=== PATIENT | male | born 1945 | race Caucasian/White ===

== ENCOUNTER 2020-01-26 09:32 | Emergency (ER) | payer MEDICARE ==
[~2020-01-26] VITALS: Ht 172.7 cm; Wt 82.3 kg
[2020-01-26 09:37] VITALS: Ht 172.7 cm; Wt 82.3 kg
[2020-01-26] MEDS ORDERED: ZYPREXA2.5 MG (09:38)
[2020-01-26 11:51] LABS: BACTERIA FEW /hpf (NEGATIVE); BILIRUBIN NEGATIVE (NEGATIVE); EPITHELIAL CELLS 0-5 /hpf (0-5); GLUCOSE NEGATIVE (NEGATIVE); KETONE NEGATIVE (NEGATIVE); NITRITE NEGATIVE (NEGATIVE); RED CELLS - URINE OCC /hpf (0-5); SPECIFIC GRAVITY 1.015 (1.005-1.020); UROBILINOGEN NORMAL (NORMAL)
[2020-01-26 11:55] LABS: BASOPHILS 0.2 % (0-2); EOSINOPHILS 4.6 % (0-7); HEMATOCRIT 37.7 % (42.0-54.0); HEMOGLOBIN 13.1 g/dL (13.5-17.5); IMMATURE GRANULOCYTES 0.2 % (0-5); LYMPHOCYTES 23.2 % (15-50); MCHC 34.7 g/dL (31.0-37.0); MCV 97.9 fL (80.0-100.0); MEAN PLATELET VOLUME 9.8 fL (7.4-10.4); MONOCYTES 8.5 % (2-11); NEUTROPHILS 63.3 % (40-80); PLATELET COUNT 131 10x3/uL (130-400); RBC 3.85 10x6/uL (4.20-6.10); RDW 13.4 % (11.5-14.5); WBC 4.8 10x3/uL (4.8-10.8)
[2020-01-26 12:01] LABS: ANION GAP 13.3 mmol/L (8-16); CALCIUM 8.3 mg/dL (8.5-10.1); CARBON DIOXIDE 21.6 mmol/L (21.0-32.0); CREATININE - SERUM 1.6 mg/dL (0.6-1.3); POTASSIUM - SERUM 3.9 mmol/L (3.5-5.1)
[2020-01-26 12:07] LABS: ALBUMIN 3.3 g/dL (3.4-5.0); BILIRUBIN - TOTAL 0.28 mg/dL (0.2-1.3); PROTEIN - SERUM 7.5 g/dL (6.4-8.2)
[2020-01-26] MEDS ORDERED: KEFLEX500 MG PO (13:00)
[2020-01-26] MEDS ORDERED: FLOMAX0.4 MG PO (13:00)
[2020-01-26 13:34] VITALS: BP 135/69
== END 2020-01-26 13:34 | disposition home or self-care (01) ==
LOC: D.ER 09:32
PROVIDERS: Family Medicine
DX: N40.1 Benign prostatic hyperplasia with lower urinary tract symptoms (principal); R33.8 Other retention of urine; N39.0 Urinary tract infection, site not specified; N28.9 Disorder of kidney and ureter, unspecified

== ENCOUNTER → 2020-03-09 13:20 | Outpatient (CLI) | payer MEDICARE ==
[2020-01-26 09:37] VITALS: BMI 27.5
[~2020-03-09 13:20] MED LIST: FLOMAX0.4 MG PO; KEFLEX500 MG PO; ZYPREXA2.5 MG
[2020-03-09 14:09] LABS: BILIRUBIN NEGATIVE (NEGATIVE); GLUCOSE NEGATIVE (NEGATIVE); KETONE NEGATIVE (NEGATIVE); NITRITE POSITIVE (NEGATIVE); UROBILINOGEN NORMAL (NORMAL)
[2020-03-09 14:14] LABS: BACTERIA MANY /hpf (NEGATIVE); EPITHELIAL CELLS NSEEN /hpf (0-5); RED CELLS - URINE 25-50 /hpf (0-5); WHITE CELLS - URINE >50 /hpf (NEGATIVE)
== END | disposition home or self-care (01) ==
LOC: D.LABREF 13:20
PROVIDERS: ATTEND Urology
DX: N40.0 Benign prostatic hyperplasia without lower urinary tract symptoms (principal)

== ENCOUNTER → 2020-04-04 22:50 | Outpatient (CLI) | payer MEDICARE ==
[2020-01-26 09:37] VITALS: BMI 27.5
== END | disposition home or self-care (01) ==
LOC: D.LABREF 22:50
PROVIDERS: ATTEND Urology
DX: N39.0 Urinary tract infection, site not specified (principal)

== ENCOUNTER → 2020-04-21 16:56 | Outpatient (CLI) | payer MEDICARE ==
[2020-01-26 09:37] VITALS: BMI 27.5
[2020-04-21 18:03] LABS: BILIRUBIN NEGATIVE (NEGATIVE); GLUCOSE NEGATIVE (NEGATIVE); KETONE NEGATIVE (NEGATIVE); NITRITE NEGATIVE (NEGATIVE); SPECIFIC GRAVITY 1.015 (1.005-1.020); UROBILINOGEN NORMAL (NORMAL)
[2020-04-21 18:04] LABS: WHITE CELLS - URINE >50 /hpf (NEGATIVE)
[2020-04-21 18:05] LABS: BACTERIA MODERATE /hpf (NEGATIVE); EPITHELIAL CELLS 0-5 /hpf (0-5)
== END | disposition home or self-care (01) ==
LOC: D.LABREF 16:56
PROVIDERS: ATTEND Urology
DX: N39.0 Urinary tract infection, site not specified (principal)

== ENCOUNTER 2020-05-18 23:07 | Emergency (ER) | payer MEDICARE ==
[~2020-05-18] VITALS: Ht 172.7 cm; Wt 75.9 kg
[2020-05-18 23:29] VITALS: Ht 172.7 cm; Wt 75.9 kg
[2020-05-19 00:21] LABS: HEMATOCRIT 40.1 % (42.0-54.0); HEMOGLOBIN 13.8 g/dL (13.5-17.5); LYMPHOCYTES 17.3 % (15-50); MCH 33.5 pg (26.0-34.0); MCHC 34.4 g/dL (31.0-37.0); MCV 97.3 fL (80.0-100.0); MEAN PLATELET VOLUME 9.9 fL (7.4-10.4); NEUTROPHILS 76.5 % (40-80); PLATELET COUNT 146 10x3/uL (130-400); RBC 4.12 10x6/uL (4.20-6.10); RDW 14.3 % (11.5-14.5); WBC 4.9 10x3/uL (4.8-10.8)
[2020-05-19 00:22] LABS: ANION GAP 12.5 mmol/L (8-16); CALCIUM 8.6 mg/dL (8.5-10.1); CARBON DIOXIDE 21.9 mmol/L (21.0-32.0); CREATININE - SERUM 1.7 mg/dL (0.6-1.3); POTASSIUM - SERUM 4.4 mmol/L (3.5-5.1)
[2020-05-19 00:27] LABS: ALBUMIN 2.8 g/dL (3.4-5.0); BILIRUBIN - TOTAL 0.34 mg/dL (0.2-1.3); PROTEIN - SERUM 6.9 g/dL (6.4-8.2)
[2020-05-19 02:07] LABS: BILIRUBIN NEGATIVE (NEGATIVE); GLUCOSE NEGATIVE (NEGATIVE); KETONE NEGATIVE (NEGATIVE); NITRITE NEGATIVE (NEGATIVE); SPECIFIC GRAVITY 1.015 (1.005-1.020); UROBILINOGEN NORMAL (NORMAL)
[2020-05-19 02:08] LABS: BACTERIA FEW /hpf (NEGATIVE); EPITHELIAL CELLS 0-5 /hpf (0-5)
[2020-05-19 02:16] VITALS: BP 129/52
== END 2020-05-19 02:16 | disposition home or self-care (01) ==
LOC: D.ER 23:07
PROVIDERS: Family Medicine
DX: T83.098A Other mechanical complication of other urinary catheter, initial encounter (principal); R33.9 Retention of urine, unspecified; R31.9 Hematuria, unspecified; E87.1 Hypo-osmolality and hyponatremia; N18.3 Chronic kidney disease, stage 3 (moderate); R73.9 Hyperglycemia, unspecified; T81.9XXA Unspecified complication of procedure, initial encounter